=== PATIENT | male | born 1970 | race African-American/Black ===

== ENCOUNTER → 2022-03-13 | Outpatient (CLI) | payer OTHER ==
[~2022-03-13] MED LIST: INSU100C4 SQ; INSU1INS SQ; LISI20TA24 PO; PIOG15TA6 PO
[2022-03-13 08:46] LABS: ALANINE AMINOTRANSFERASE 36 U/L (12-78); ALBUMIN 3.9 g/dL (3.4-5.0); ALKALINE PHOSPHATASE 104 U/L (46-116); ANION GAP 5 mmol/L (8-16); ASPARTATE AMINOTRANSFERASE 35 U/L (15-37); BILIRUBIN,TOTAL 0.7 mg/dL (0.1-1.0); CARBON DIOXIDE 33 mmol/L (22-29); CHLORIDE 96 mmol/L (98-107); GLOMERULAR FILTR. RATE CALC > 60 mL/min (>60); GLUCOSE,RANDOM 209 mg/dL (70-110); POTASSIUM 4.2 mmol/L (3.5-5.1); SODIUM SERUM 134 mmol/L (136-145); TOTAL PROTEIN, SERUM 7.6 g/dL (6.4-8.2); UREA NITROGEN, BLOOD 11 mg/dL (7-18)
[2022-03-13 08:51] LABS: APPEARANCE,URINE CLEAR (CLEAR); BILIRUBIN,URINE NEGATIVE (NEGATIVE); GLUCOSE, URINE (UA) TRACE mg/dL (NEGATIVE); KETONES,URINE NEGATIVE (NEGATIVE); LEUKOCYTE ESTERASE ,URINE NEGATIVE (NEGATIVE); NITRATE,URINE NEGATIVE (NEGATIVE); OCCULT BLOOD,URINE NEGATIVE (NEGATIVE); PH,URINE 5.5 (5.0-8.0); PROTEIN,URINE NEGATIVE (NEGATIVE); SPECIFIC GRAVITIY, URINE 1.012 (1.003-1.030); UROBILINOGEN,URINE <=1.0 mg/dL (<=1.0)
[2022-03-13 08:59] LABS: BACTERIA,URINE None Seen /HPF (None Seen); RBC,URINE None Seen /HPF (0-2); WBC,URINE None Seen /HPF (0-5)
== END | disposition home or self-care (01) ==
LOC: MSR 07:54
PROVIDERS: ATTEND Chiropractor
DX: S92.334A Nondisplaced fracture of third metatarsal bone, right foot, initial encounter for closed fracture (principal); S92.344A Nondisplaced fracture of fourth metatarsal bone, right foot, initial encounter for closed fracture; T14.8XXA Other injury of unspecified body region, initial encounter; M13.80 Other specified arthritis, unspecified site; E11.9 Type 2 diabetes mellitus without complications; X58.XXXA Exposure to other specified factors, initial encounter; Y93.89 Activity, other specified; Y92.89 Other specified places as the place of occurrence of the external cause; Y99.8 Other external cause status
CPT/HCPCS: 72070; 72100; 80053; 81001